=== PATIENT | female | born 2000 | race Caucasian/White ===

== ENCOUNTER → 2020-12-13 08:12 | Outpatient (CLI) | payer OTHER, MEDICAID, SELFPAY ==
[2020-12-13 09:04] LABS: COVID19 -Nasal RAPID Negative (Negative)
== END ==
PROVIDERS: Visit Provider Nurse Practitioner
DX: R09.81 Nasal congestion (principal); R05 Cough; Z20.822 Contact with and (suspected) exposure to COVID-19; R51.9 Headache, unspecified
CPT/HCPCS: 87635

== ENCOUNTER → 2020-12-25 15:47 | Outpatient (CLI) | payer OTHER, MEDICAID, SELFPAY ==
[2020-12-25 16:55] LABS: Add Manual Diff / Slide Review NO; Basophils Absolute Auto 0 /uL (0-100); Basophils Percent Auto 0.6 % (0-2); Eosinophils Absolute Auto 100 /uL (0-450); Eosinophils Percent Auto 0.9 % (2-4); Hematocrit 42.4 % (36-46); Hemoglobin 14.5 g/dL (12.0-16.0); Lymphocytes Absolute Auto 2700 /uL (1100-4500); Lymphocytes Percent Auto 38.7 % (25-40); Mean Corpuscular HGB Conc 34.2 % (30-36); Mean Corpuscular Hemoglobin 29.1 PG (26-34); Monocytes Absolute Auto 600 /uL (0-900); Monocytes Percent Auto 8.4 % (3-14); Neutrophils Absolute Auto 3500 /uL (1500-7000); Neutrophils Percent Auto 51.4 % (50-75); Platelet Count 299 X10^3/uL (150-400); Red Blood Cell Count 4.98 X10^6/uL (4.0-5.2); Red Cell Distribution Width 13.4 % (11.6-14.8); White Blood Cell Count 6.9 X10^3/uL (4.5-11.0)
[2020-12-25 17:39] LABS: Alanine Aminotransferase 46 IU/L (<35); Albumin 4.6 g/dL (3.5-5.0); Albumin Globulin Ratio 1.3 (1.0-2.8); Alkaline Phosphatase 64 U/L (38-126); Aspartate Aminotransferase 40 IU/L (14-36); BUN Creatinine Ratio 10.3 (6-22); Bilirubin Total 0.4 mg/dL (0.2-1.3); Blood Urea Nitrogen 10 mg/dL (7-17); Calcium 9.4 mg/dL (8.4-10.2); Carbon Dioxide 22 mmol/L (22-32); Chloride 105 mmol/L (98-107); Cholesterol 212 mg/dL (140-199); Estimated Glomerular Filt Rate > 60.0 mL/min (>60); Globulin 3.5 g/dL (1.7-4.1); Glucose 83 mg/dL (70-100); HDL Cholesterol 65 mg/dL (40-60); HEMOLYSIS < 15 (0-50); LDL Cholesterol Calculated 120 mg/dL (<100); Potassium 3.1 mmol/L (3.4-5.1); Sodium 138 mmol/L (137-145); Total Protein 8.1 g/dL (6.3-8.2); Triglycerides 133 mg/dL (35-150)
[2020-12-25 18:13] LABS: TSH w/ Reflex to FT4 7.58 uIU/mL (0.47-4.68)
[2020-12-25 18:35] LABS: Creatinine Urine Random 108.9 mg/dL
[2020-12-25 18:40] LABS: Microalbumi Creatinin Ratio Ur 10.1 ug/mg CR (<30); Microalbumin Urine Random 1.1 mg/dL (0-1.6)
[2020-12-25 19:07] LABS: Free T4, Direct Thyroxine 1.21 ng/dL (0.78-2.19)
== END ==
PROVIDERS: PCP Family Medicine; Referring Provider Family Medicine; Visit Provider Family Medicine
DX: I10 Essential (primary) hypertension (principal); F41.8 Other specified anxiety disorders; T78.40XA Allergy, unspecified, initial encounter
CPT/HCPCS: 36415; 80053; 80061; 82043; 82570; 84439; 84443; 85025

== ENCOUNTER → 2021-02-26 15:02 | Outpatient (CLI) | payer OTHER, MEDICAID, SELFPAY ==
[2021-02-26 17:46] LABS: Alanine Aminotransferase 16 IU/L (<35); Albumin 4.6 g/dL (3.5-5.0); Albumin Globulin Ratio 1.2 (1.0-2.8); Alkaline Phosphatase 50 U/L (38-126); Aspartate Aminotransferase 25 IU/L (14-36); Bilirubin Total 0.6 mg/dL (0.2-1.3); Blood Urea Nitrogen 7 mg/dL (7-17); Calcium 9.6 mg/dL (8.4-10.2); Carbon Dioxide 25 mmol/L (22-32); Chloride 101 mmol/L (98-107); Estimated Glomerular Filt Rate > 60.0 mL/min (>60); Globulin 3.7 g/dL (1.7-4.1); Glucose 85 mg/dL (70-100); HEMOLYSIS < 15 (0-50); Potassium 3.1 mmol/L (3.4-5.1); Sodium 137 mmol/L (137-145); Total Protein 8.3 g/dL (6.3-8.2)
[2021-02-26 18:16] LABS: TSH w/ Reflex to FT4 3.43 uIU/mL (0.47-4.68)
== END ==
PROVIDERS: PCP Family Medicine; Referring Provider Family Medicine; Visit Provider Family Medicine
DX: R00.2 Palpitations (principal); I10 Essential (primary) hypertension; E03.9 Hypothyroidism, unspecified
CPT/HCPCS: 36415; 80053; 84443

== ENCOUNTER → 2021-04-16 16:12 | Outpatient (CLI) | payer OTHER, MEDICAID, SELFPAY ==
[2021-04-16 19:26] LABS: TSH w/ Reflex to FT4 2.41 uIU/mL (0.47-4.68)
== END ==
PROVIDERS: PCP Family Medicine; Referring Provider Family Medicine; Visit Provider Family Medicine
DX: E03.9 Hypothyroidism, unspecified (principal)
CPT/HCPCS: 36415; 84443

== ENCOUNTER → 2021-05-16 17:36 | Outpatient (CLI) | payer OTHER, MEDICAID, SELFPAY ==
[2021-05-16 18:12] LABS: Appearance Urine UA CLEAR; Bilirubin Urine UA NEGATIVE (NEGATIVE); Color Urine UA YELLOW; Glucose Urine UA NEGATIVE (Negative); Ketones Urine UA NEGATIVE (NEGATIVE); Leukocyte Esterase Urine UA NEGATIVE (NEGATIVE); Nitrite Urine UA NEGATIVE (Negative); Occult Blood Urine UA TRACE-LYSED (Negative); Protein Urine UA NEGATIVE (Negative); Urobilinogen Urine UA 0.2 E.U./dL (0.2)
[2021-05-16 18:14] LABS: pH Urine UA 7.5 (4.5-8.0)
[2021-05-16 18:28] LABS: Bacteria Urine Occasional (0-1); Culture Indicated Urine Cult Not Indicated; RBC Urine None Seen (0-5/HPF); Squamous Epithelial Cell Urine 10-30 /HPF (0-5/HPF); Transitional Epi Cells Urine 1-5/HPF (0-5/HPF); WBC Urine None Seen (0-5/HPF)
== END ==
PROVIDERS: PCP Family Medicine; Referring Provider Family Medicine; Visit Provider Family Medicine
DX: N39.0 Urinary tract infection, site not specified (principal); R30.0 Dysuria
CPT/HCPCS: 81001

== ENCOUNTER → 2021-09-21 11:29 | Outpatient (CLI) | payer OTHER, MEDICAID, SELFPAY ==
[2021-09-21 13:05] LABS: Alanine Aminotransferase 12 IU/L (<35); Albumin 4.4 g/dL (3.5-5.0); Albumin Globulin Ratio 1.2 (1.0-2.8); Alkaline Phosphatase 48 U/L (38-126); Aspartate Aminotransferase 26 IU/L (14-36); Bilirubin Total 0.5 mg/dL (0.2-1.3); Blood Urea Nitrogen 12 mg/dL (7-17); Calcium 9.1 mg/dL (8.4-10.2); Carbon Dioxide 26 mmol/L (22-32); Chloride 99 mmol/L (98-107); Estimated Glomerular Filt Rate > 60 mL/min (>60); Globulin 3.8 g/dL (1.7-4.1); Glucose 90 mg/dL (70-100); HEMOLYSIS 21 (0-50); Potassium 3.8 mmol/L (3.4-5.1); Sodium 135 mmol/L (137-145); Total Protein 8.2 g/dL (6.3-8.2)
[2021-09-21 13:06] LABS: Appearance Urine UA CLEAR; Bilirubin Urine UA NEGATIVE (NEGATIVE); Color Urine UA YELLOW; Glucose Urine UA NEGATIVE (Negative); Ketones Urine UA NEGATIVE (NEGATIVE); Leukocyte Esterase Urine UA NEGATIVE (NEGATIVE); Nitrite Urine UA NEGATIVE (Negative); Occult Blood Urine UA TRACE-INTACT (Negative); Protein Urine UA NEGATIVE (Negative); Specific Gravity Urine UA <=1.005 (1.000-1.035); Urobilinogen Urine UA 0.2 E.U./dL (0.2)
[2021-09-21 13:16] LABS: Bacteria Urine None Seen; Culture Indicated Urine Cult Not Indicated; RBC Urine None Seen (0-5/HPF); Urine Comments Microscopic Normal; WBC Urine None Seen (0-5/HPF)
[2021-09-21 13:38] LABS: TSH w/ Reflex to FT4 8.02 uIU/mL (0.47-4.68)
[2021-09-21 16:09] LABS: Free T4, Direct Thyroxine 1.53 ng/dL (0.78-2.19)
[2021-09-24 14:36] LABS: Interpretation Negative (Negative)
== END ==
PROVIDERS: PCP Family Medicine; Referring Provider Family Medicine; Visit Provider Family Medicine
DX: E03.9 Hypothyroidism, unspecified (principal); I10 Essential (primary) hypertension; R00.2 Palpitations; R10.9 Unspecified abdominal pain
CPT/HCPCS: 36415; 80053; 81001; 83013; 84439; 84443

== ENCOUNTER → 2022-01-10 16:54 | Outpatient (CLI) | payer OTHER, MEDICAID, SELFPAY ==
[2022-01-10 19:48] LABS: Thyroid Stimulating Hormone 2.06 uIU/mL (0.47-4.68)
== END ==
PROVIDERS: PCP Family Medicine; Referring Provider Family Medicine; Visit Provider Family Medicine
DX: E03.9 Hypothyroidism, unspecified (principal)
CPT/HCPCS: 36415; 84443

== ENCOUNTER → 2022-02-04 15:14 | Outpatient (CLI) | payer OTHER, MEDICAID, SELFPAY ==
[2022-02-04 16:14] LABS: Add Manual Diff / Slide Review NO; Basophils Absolute Auto 0 /uL (0-100); Basophils Percent Auto 0.3 % (0-2); Eosinophils Absolute Auto 100 /uL (0-450); Eosinophils Percent Auto 1.2 % (2-4); Hematocrit 42.3 % (36-46); Hemoglobin 14.5 g/dL (12.0-16.0); Lymphocytes Absolute Auto 2100 /uL (1100-4500); Mean Corpuscular HGB Conc 34.2 % (30-36); Mean Corpuscular Hemoglobin 29.4 PG (26-34); Mean Corpuscular Volume 85.8 fL (80-100); Monocytes Absolute Auto 500 /uL (0-900); Monocytes Percent Auto 5.7 % (3-14); Neutrophils Absolute Auto 5600 /uL (1500-7000); Neutrophils Percent Auto 67.8 % (50-75); Platelet Count 304 X10^3/uL (150-400); Red Blood Cell Count 4.93 X10^6/uL (4.0-5.2); Red Cell Distribution Width 13.3 % (11.6-14.8); White Blood Cell Count 8.2 X10^3/uL (4.5-11.0)
[2022-02-04 16:58] LABS: Erythrocyte Sedimentation Rate 4 MM/HR (0-20)
[2022-02-04 17:29] LABS: Alanine Aminotransferase 18 IU/L (<35); Albumin 4.2 g/dL (3.5-5.0); Albumin Globulin Ratio 1.1 (1.0-2.8); Alkaline Phosphatase 50 U/L (38-126); Aspartate Aminotransferase 23 IU/L (14-36); BUN Creatinine Ratio 9.1 (6-22); Bilirubin Total 0.4 mg/dL (0.2-1.3); Blood Urea Nitrogen 9 mg/dL (7-17); C-Reactive Protein Quant 0.6 mg/dL (<1.0); Calcium 9.2 mg/dL (8.4-10.2); Carbon Dioxide 22 mmol/L (22-32); Chloride 102 mmol/L (98-107); Estimated Glomerular Filt Rate > 60 mL/min (>60); Globulin 3.8 g/dL (1.7-4.1); Glucose 117 mg/dL (70-100); HEMOLYSIS < 15 (0-50); Potassium 3.2 mmol/L (3.4-5.1); Sodium 138 mmol/L (137-145)
[2022-02-04 19:06] LABS: Appearance Urine UA CLEAR; Bilirubin Urine UA NEGATIVE (NEGATIVE); Color Urine UA YELLOW; Glucose Urine UA NEGATIVE (Negative); Ketones Urine UA NEGATIVE (NEGATIVE); Leukocyte Esterase Urine UA NEGATIVE (NEGATIVE); Nitrite Urine UA NEGATIVE (Negative); Occult Blood Urine UA TRACE-LYSED (Negative); Protein Urine UA NEGATIVE (Negative); Urobilinogen Urine UA 0.2 E.U./dL (0.2)
[2022-02-04 19:54] LABS: Bacteria Urine None Seen; Culture Indicated Urine Cult Not Indicated; RBC Urine None Seen (0-5/HPF); WBC Urine None Seen (0-5/HPF)
[2022-02-07 13:42] LABS: ANA Screen, IFA Negative (.)
== END ==
PROVIDERS: PCP Family Medicine; Referring Provider Family Medicine; Visit Provider Family Medicine
DX: E03.9 Hypothyroidism, unspecified (principal); I10 Essential (primary) hypertension; I73.00 Raynaud's syndrome without gangrene; K92.1 Melena; R19.5 Other fecal abnormalities; R53.83 Other fatigue
CPT/HCPCS: 36415; 80053; 81001; 85025; 85651; 86038; 86140

== ENCOUNTER → 2022-06-04 13:38 | Outpatient (CLI) | payer OTHER, MEDICAID, SELFPAY ==
--- NOTE | 2022-06-04 | DI.MRI.S_ITS ---
PROCEDURE: MR HEAD/BRAIN WO/W CON INDICATIONS: Chronic migraine without aura TECHNIQUE: Noncontrast axial T1 spin echo, axial T2 fast spin echo, sagittal and axial FLAIR, coronal T2 fast spin echo, axial gradient echo, axial diffusion and ADC through the brain. After the administration of contrast, axial and coronal and sagittal 3D VIBE or T1 spin echo with fat saturation through the brain. COMPARISON: None. FINDINGS: Image quality: Excellent. CSF Spaces: Basal cisterns are patent. No extra-axial fluid collections. Ventricles are normal in size and shape. Brain: No midline shift. No intracranial bleeds or masses. No abnormal intracranial enhancement. The brainstem appears normal. Diffusion-weighted images demonstrate no acute ischemic insults. No chronic ischemic insults. Normal intravascular flow voids are present. Skull and face: Calvarial marrow is normal in signal. Orbits appear normal. Sinuses: Small right maxillary sinus mucous retention cyst. The mastoids appear clear. IMPRESSION: No intracranial disease process. Dictated by: Shellie Kolb MD, PhD on 06/04/2022 at 15:35 Approved by: Shellie Kolb MD, PhD on 06/04/2022 at 15:40
== END ==
PROVIDERS: PCP Family Medicine; Referring Provider Psychiatry & Neurology Neurology; Visit Provider Psychiatry & Neurology Neurology
DX: G43.719 Chronic migraine without aura, intractable, without status migrainosus (principal)
CPT/HCPCS: 70553; A9579

== ENCOUNTER → 2022-07-01 16:50 | Outpatient (CLI) | payer OTHER, MEDICAID, SELFPAY ==
[2022-07-01 18:10] LABS: Alanine Aminotransferase 21 IU/L (<35); Albumin 4.3 g/dL (3.5-5.0); Albumin Globulin Ratio 1.1 (1.0-2.8); Alkaline Phosphatase 53 U/L (38-126); Aspartate Aminotransferase 28 IU/L (14-36); BUN Creatinine Ratio 15.2 (6-22); Bilirubin Total 0.6 mg/dL (0.2-1.3); Blood Urea Nitrogen 14 mg/dL (7-17); Calcium 9.5 mg/dL (8.4-10.2); Carbon Dioxide 26 mmol/L (22-32); Chloride 101 mmol/L (98-107); Estimated Glomerular Filt Rate > 60 mL/min (>60); Globulin 3.9 g/dL (1.7-4.1); Glucose 83 mg/dL (70-100); HEMOLYSIS < 15 (0-50); Potassium 3.5 mmol/L (3.4-5.1); Sodium 136 mmol/L (137-145); Total Protein 8.2 g/dL (6.3-8.2)
[2022-07-01 18:40] LABS: TSH w/ Reflex to FT4 2.98 uIU/mL (0.47-4.68)
== END ==
PROVIDERS: PCP Family Medicine; Referring Provider Family Medicine; Visit Provider Family Medicine
DX: N32.89 Other specified disorders of bladder (principal)
CPT/HCPCS: 36415; 80053; 84443

== ENCOUNTER → 2022-10-03 11:53 | Outpatient (CLI) | payer OTHER, MEDICAID, SELFPAY ==
[2022-10-03 12:45] LABS: Add Manual Diff / Slide Review NO; Basophils Absolute Auto 0 /uL (0-100); Basophils Percent Auto 0.4 % (0-2); Eosinophils Absolute Auto 100 /uL (0-450); Hematocrit 40.7 % (36-46); Lymphocytes Absolute Auto 2300 /uL (1100-4500); Lymphocytes Percent Auto 25.5 % (25-40); Mean Corpuscular HGB Conc 34.4 % (30-36); Mean Corpuscular Hemoglobin 29.3 PG (26-34); Mean Corpuscular Volume 85.2 fL (80-100); Monocytes Absolute Auto 600 /uL (0-900); Monocytes Percent Auto 6.5 % (3-14); Neutrophils Absolute Auto 6000 /uL (1500-7000); Neutrophils Percent Auto 66.6 % (50-75); Platelet Count 321 X10^3/uL (150-400); Red Blood Cell Count 4.78 X10^6/uL (4.0-5.2)
[2022-10-03 13:06] LABS: Alanine Aminotransferase 17 IU/L (<35); Albumin 4.2 g/dL (3.5-5.0); Albumin Globulin Ratio 1.2 (1.0-2.8); Alkaline Phosphatase 48 U/L (38-126); Aspartate Aminotransferase 23 IU/L (14-36); BUN Creatinine Ratio 13.7 (6-22); Bilirubin Total 0.4 mg/dL (0.2-1.3); Blood Urea Nitrogen 13 mg/dL (7-17); Calcium 9.2 mg/dL (8.4-10.2); Carbon Dioxide 24 mmol/L (22-32); Chloride 101 mmol/L (98-107); Estimated Glomerular Filt Rate > 60 mL/min (>60); Globulin 3.4 g/dL (1.7-4.1); Glucose 103 mg/dL (70-100); HEMOLYSIS < 15 (0-50); Potassium 3.1 mmol/L (3.4-5.1); Sodium 137 mmol/L (137-145); Total Protein 7.6 g/dL (6.3-8.2)
[2022-10-03 13:34] LABS: TSH w/ Reflex to FT4 3.28 uIU/mL (0.47-4.68)
== END ==
PROVIDERS: PCP Family Medicine; Referring Provider Family Medicine; Visit Provider Family Medicine
DX: E03.9 Hypothyroidism, unspecified (principal); N92.1 Excessive and frequent menstruation with irregular cycle; R51.9 Headache, unspecified; R63.5 Abnormal weight gain
CPT/HCPCS: 36415; 80053; 84443; 85025

== ENCOUNTER → 2022-10-25 18:06 | Outpatient (CLI) | payer OTHER, MEDICAID, SELFPAY | PROVIDERS: PCP Family Medicine; Visit Provider Physician Assistant | DX: N39.0 Urinary tract infection, site not specified (principal); N89.8 Other specified noninflammatory disorders of vagina | CPT/HCPCS: 81002; 87086; 87210 ==

== ENCOUNTER → 2023-01-03 17:35 | Outpatient (CLI) | payer OTHER, MEDICAID, SELFPAY ==
[2023-01-03 18:05] LABS: Alanine Aminotransferase 29 IU/L (<35); Albumin 4.4 g/dL (3.5-5.0); Albumin Globulin Ratio 1.1 (1.0-2.8); Alkaline Phosphatase 45 U/L (38-126); Aspartate Aminotransferase 36 IU/L (14-36); BUN Creatinine Ratio 12.1 (6-22); Bilirubin Total 0.7 mg/dL (0.2-1.3); Blood Urea Nitrogen 12 mg/dL (7-17); Calcium 9.3 mg/dL (8.4-10.2); Carbon Dioxide 23 mmol/L (22-32); Chloride 100 mmol/L (98-107); Estimated Glomerular Filt Rate > 60 mL/min (>60); Glucose 90 mg/dL (70-100); Sodium 135 mmol/L (137-145); Total Protein 8.4 g/dL (6.3-8.2)
[2023-01-03 18:09] LABS: HEMOLYSIS 62 (0-50)
[2023-01-03 18:10] LABS: Potassium 3.5 mmol/L (3.4-5.1)
== END ==
PROVIDERS: PCP Family Medicine; Referring Provider Family Medicine; Visit Provider Family Medicine
DX: E03.9 Hypothyroidism, unspecified (principal); I10 Essential (primary) hypertension; E87.6 Hypokalemia
CPT/HCPCS: 36415; 80053

== ENCOUNTER → 2023-01-04 16:47 | Outpatient (CLI) | payer OTHER, MEDICAID, SELFPAY ==
--- NOTE | 2023-01-04 16:49 | DI.RAD.S_ITS ---
PROCEDURE: XR CHEST 2V INDICATIONS: pain with coughing, intermittent x 2-3 wk TECHNIQUE: 2 views of the chest were acquired. COMPARISON: None. FINDINGS: Surgical changes and devices: None. Lungs and pleura: Lungs are clear. No pleural effusions or pneumothorax. Mediastinum: Mediastinal contours are normal. Heart size is normal. Bones and chest wall: No suspicious bony abnormalities. Soft tissues appear unremarkable. IMPRESSION: Clear lungs. No infiltrates. Dictated by: Sidney Douglas M.D. on 01/04/2023 at 16:53 Approved by: Sidney Douglas M.D. on 01/04/2023 at 16:53
== END ==
PROVIDERS: PCP Family Medicine; Referring Provider Student in an Organized Health Care Education/Training Program; Visit Provider Student in an Organized Health Care Education/Training Program
DX: R05.8 Other specified cough (principal); R52 Pain, unspecified
CPT/HCPCS: 71046

== ENCOUNTER → 2023-05-16 12:38 | Outpatient (CLI) | payer OTHER, MEDICAID, SELFPAY ==
--- NOTE | 2023-05-16 12:39 | DI.US.S_ITS ---
LIMITED ULTRASOUND OF LEFT BREAST: 05/16/2023 CLINICAL: Palpable left breast lump and diffuse pain. No prior exams were available for comparison. Color flow and real-time ultrasound of the left breast 2 o'clock region were performed. No sonographic abnormality is seen in the area of clinical concern in the left breast at 2 o'clock, 7 cm from the nipple. IMPRESSION: NEGATIVE No sonographic abnormality in the area of clinical concern. No targeted sonographic evidence of malignancy. Recommend routine screening mammogram starting at age 40. Clinical follow-up is also recommended, and further management of palpable abnormalities or other focal signs or symptoms should be based on the results of clinical evaluation. If palpable abnormality or other concerning symptom persists or progresses, further clinical evaluation should be considered. Findings and recommendations were conveyed to the patient during today's evaluation. This exam was interpreted at Station ID: [id number]. Electronically Signed By: Chula Ashraf M.D., PH.D eb/:05/16/2023 16:37:00 letter sent: Clinical Evaluation Ultrasound BI-RADS: 1 Negative
== END ==
LOC: US 12:39
PROVIDERS: PCP Family Medicine; Referring Provider Family Medicine; Visit Provider Family Medicine
DX: N63.21 Unspecified lump in the left breast, upper outer quadrant (principal)
CPT/HCPCS: 76642

== ENCOUNTER → 2023-08-29 13:46 | Outpatient (CLI) | payer OTHER, MEDICAID, SELFPAY ==
--- NOTE | 2023-08-29 13:47 | DI.ECHO.S_ITS ---
[facility] : : [address] : : [place] : : [id number] : : Phone: [phone] Echocardiogram Report + + :Name: REYNALDO WARD Study Date: 08/29/2023 Height: 62 in : :[facility] ReadingLocation: Weight: 122 lb : : Gender: Female BSA: 1.5 m2 : :: 2000 Age: 22 yrs BP: 144/93 mmHg: :Reason For Study: CHEST PAIN : :Ordering Physician: [place]ER BEACH Performed By: Sebastian Azul : :Referring: [place]ER [place] : + + Interpretation Summary 1. The left ventricular contractility is normal. Estimated ejection fraction is greater than 60% with no segmental wall motion abnormalities. No left ventricular hypertrophy present. Normal diastolic function. 2. The right ventricular contractility is normal. 3. All cardiac chambers are of normal size. 4. No significant valvular abnormalities appreciated. 5. No obvious intracardiac shunts noted. 6. No obvious intracardiac masses nor thrombi are appreciated. 7. No hemodynamically significant pericardial effusion identified. Conclusion: Normal biventricular function with no significant structural abnormalities. Procedure: A two-dimensional transthoracic echocardiogram with color flow and Doppler was performed. The study quality was technically adequate. There is no prior echocardiogram noted for this patient. The patient was in sinus rhythm with heart rates between 89-116 bpm during the exam. Left Ventricle: The left ventricle is normal in size and wall thickness. The ejection fraction is estimated to be 65-70%. Right Ventricle: The right ventricle is normal size. The right ventricular systolic function is normal. Atria: The left atrial size is normal. Right atrial size is normal. The interatrial septum grossly appears intact with no obvious evidence for an atrial septal defect. Mitral Valve: The mitral valve is normal in structure and function. There is no mitral valve stenosis. There is no mitral regurgitation noted. Aortic Valve: The aortic valve is trileaflet. There is no aortic valve stenosis. No aortic regurgitation is present. Tricuspid Valve: The tricuspid valve is normal. There is no tricuspid stenosis. No tricuspid regurgitation. Pulmonic Valve: The pulmonic valve is not well visualized. There is no pulmonic valvular stenosis. There is no pulmonic valvular regurgitation. Great Vessels: The aortic root is normal size. The ascending aorta could not be visualized. The IVC is of normal diameter and collapses greater than 50% with a sniff. This suggests a low right atrial pressure of 3 mm Hg. Pericardium/ Pleura There is no pericardial effusion. There is no pleural effusion. MMode/2D Measurements & Calculations LVIDd: 4.1 cm LVOT diam: 1.8 cm LVIDs: 2.5 cm Ao root diam: 3.1 cm FS: 39.2 % Ao Arch Diam (Prox Trans): 1.7 cm IVSd: 0.66 cm LVPWd: 0.74 cm LV gross. diameter/BSA (cm/m^2): 2.6 LV sys. diameter/BSA (cm/m^2): 1.6 LA A2 area: 12.0 cm2 RA long axis: 3.3 cm LA A4 area: 11.9 cm2 RA area: 8.1 cm2 LA length (vol): 4.4 cm RA vol: 16.7 ml LA vol: 27.3 ml RA : 10.8 ml/m2 LA vol index: 17.6 ml/m2 IVC diam: 1.3 cm RVD1 (basal): 2.5 cm RVD2 (mid): 2.4 cm TAPSE: 2.5 cm Doppler Measurements & Calculations Ao V2 max: 170.5 cm/sec LVOT Max Sanford: 161.4 cm/sec Ao V2 mean: 116.7 cm/sec LV V1 max P.4 mmHg Ao max P.6 mmHg LV V1 VTI: 29.2 cm Ao mean P.3 mmHg GARY(I,D): 2.5 cm2 Ao V2 VTI: 29.6 cm GARY(V,D): 2.4 cm2 sev ratio: 0.98 GARY indexed to BSA (cm^2/m^2): 1.6 MV E max sanford: 129.0 cm/sec PA V2 max: 121.3 cm/sec MV A max sanford: 87.8 cm/sec PA V2 mean: 81.8 cm/sec MV E/A: 1.5 PA mean P.1 mmHg Med Peak E' Sanford: 16.5 cm/sec PA pr(Accel): 27.6 mmHg E/E' med: 7.8 Lat Peak E' Sanford: 15.5 cm/sec E/E' lat: 8.3 E/e' average: 8.0 MV dec time: 0.12 sec SV(LVOT): 75.2 ml Reading Physician:
--- NOTE | 2023-08-29 13:48 | DI.NM.S_ITS ---
PROCEDURE: NM EXERCISE TREADMILL NON NUC COMPARISON: None INDICATIONS: Chest pain FINDINGS: Supine ECG sinus rhythm 95 bpm, occasional PVCs. Standing ECG sinus tachycardia 130 bpm. Eamon protocol 6:18, maximum heart rate 178 bpm (90% peak predicted), maximum blood pressure 140/86, 6.4 METS, DANNIE +39%. Exercise ECG sinus tachycardia, no ST segment changes or arrhythmias. Delayed heart rate recovery. The patient did not complain of exercise-induced chest discomfort. IMPRESSION: Low risk study for ischemia. No evidence of exercise-induced ischemia or arrhythmia. Occasional PVCs noted at rest. Relative tachycardia in the supine position with accelerated heart rate response to standing and exertion. Normal blood pressure response. Markedly reduced exercise capacity. Dictated by: Maribel Kidd D.O. on 08/29/2023 at 16:28 Approved by: Maribel Kidd D.O. on 08/29/2023 at 16:33
== END ==
PROVIDERS: PCP Family Medicine; Referring Provider Internal Medicine; Visit Provider Internal Medicine
DX: R07.9 Chest pain, unspecified (principal)
CPT/HCPCS: 93017; 93306

== ENCOUNTER → 2025-02-14 16:12 | Outpatient (CLI) | payer OTHER, SELFPAY | PROVIDERS: PCP Family Medicine; Referring Provider Family Medicine; Visit Provider Internal Medicine Critical Care Medicine | DX: R07.9 Chest pain, unspecified (principal); Z77.22 Contact with and (suspected) exposure to environmental tobacco smoke (acute) (chronic) | CPT/HCPCS: 94060 ==

== ENCOUNTER → 2025-02-14 16:58 | Outpatient (CLI) | payer OTHER, SELFPAY ==
[2025-02-14 17:57] LABS: Add Manual Diff / Slide Review NO; Hematocrit 41.1 % (36-46); Hemoglobin 14.2 g/dL (12.0-16.0); Lymphocytes Absolute Auto 1900 /uL (1100-4500); Mean Corpuscular HGB Conc 34.5 % (30-36); Mean Corpuscular Hemoglobin 29.3 PG (26-34); Mean Corpuscular Volume 85.1 fL (80-100); Platelet Count 329 X10^3/uL (150-400)
[2025-02-14 18:21] LABS: Alanine Aminotransferase 17 IU/L (<35); Albumin 4.3 g/dL (3.5-5.0); Albumin Globulin Ratio 1.3 (1.0-2.8); Alkaline Phosphatase 70 U/L (38-126); Blood Urea Nitrogen 7 mg/dL (7-17); Calcium 9.3 mg/dL (8.4-10.2); Carbon Dioxide 21 mmol/L (22-32); Chloride 103 mmol/L (98-107); Cholesterol 242 mg/dL (140-199); Estimated Glomerular Filt Rate > 60 mL/min (>60); Globulin 3.4 g/dL (1.7-4.1); Glucose 90 mg/dL (70-99); HDL Cholesterol 78 mg/dL (40-60); HEMOLYSIS < 15 (0-50); Potassium 3.4 mmol/L (3.4-5.1); Sodium 135 mmol/L (137-145); Total Protein 7.7 g/dL (6.3-8.2); Triglycerides 122 mg/dL (35-150)
[2025-02-14 18:52] LABS: TSH w/ Reflex to FT4 4.94 uIU/mL (0.47-4.68)
[2025-02-14 19:25] LABS: Free T4, Direct Thyroxine 1.34 ng/dL (0.78-2.19)
== END ==
LOC: LAB 16:59
PROVIDERS: PCP Family Medicine; Referring Provider Family Medicine; Visit Provider Family Medicine
DX: R07.9 Chest pain, unspecified (principal); E03.9 Hypothyroidism, unspecified; R53.83 Other fatigue; Z77.22 Contact with and (suspected) exposure to environmental tobacco smoke (acute) (chronic)
CPT/HCPCS: 36415; 80053; 80061; 84439; 84443; 85025; 94060

== ENCOUNTER → 2025-03-02 15:59 | Outpatient (CLI) | payer OTHER, SELFPAY | PROVIDERS: PCP Family Medicine; Referring Provider Internal Medicine Critical Care Medicine; Visit Provider Internal Medicine Critical Care Medicine | DX: R07.9 Chest pain, unspecified (principal) | CPT/HCPCS: 36415; 85651 ==